=== PATIENT | female | born 1960 | race Caucasian/White ===

== ENCOUNTER 2019-09-09 12:18 | Day surgery (SDC) | payer MEDICAID ==
[~2019-09-09] VITALS: Ht 163.8 cm; Wt 135.0 kg
[~2019-09-09 12:18] MED LIST: SODIUM CHLORIDE 0.9% 1,000 ML IV ONE; SODIUM CHLORIDE 0.9% 1,000 ML ONE
[2019-09-09] MEDS ORDERED: PROPOFOL 1% 20 ML VIAL IVP ONE (12:19)
[2019-09-09] MEDS ORDERED: ALBU8.5H8 IH (13:40)
[2019-09-09] MEDS ORDERED: CARV3 PO (13:40)
[2019-09-09] MEDS ORDERED: TOPI25 PO (13:40)
[2019-09-09] MEDS ORDERED: FURO40 PO (13:40)
== END 2019-09-09 15:40 | disposition home or self-care (01) ==
LOC: SURGERY 12:18
PROVIDERS: ATTEND Student in an Organized Health Care Education/Training Program
DX: R12 Heartburn (principal); K22.8 Other specified diseases of esophagus; K44.9 Diaphragmatic hernia without obstruction or gangrene; K31.89 Other diseases of stomach and duodenum; K64.8 Other hemorrhoids; K29.50 Unspecified chronic gastritis without bleeding; K21.0 Gastro-esophageal reflux disease with esophagitis; K22.70 Barrett's esophagus without dysplasia; J44.9 Chronic obstructive pulmonary disease, unspecified; I50.9 Heart failure, unspecified; Z98.890 Other specified postprocedural states; Z79.899 Other long term (current) drug therapy
CPT/HCPCS: 45380; 43239; 88305; 88312; 88313; 93005; C1769; J2704; J7030